=== PATIENT | female | born 1965 | race Caucasian/White ===

== ENCOUNTER 2022-05-20 13:17 | Emergency (ER) | payer BC, SELFPAY ==
--- NOTE | 2022-05-20 13:43 | ED.GENADULT ---
HPI - General Adult General Time Seen by Provider: 13:43 <Lucila Rodriguez MD - Last Filed: 05/20/22 15:49> Date Seen: 05/20/22 <Lucila Rodriguez MD - Last Filed: 05/20/22 15:49> Chief complaint: Dizziness/Vertigo <Lucila Rodriguez MD - Last Filed: 05/20/22 15:49> Stated complaint: Dizziness, numbness on left side of face <Lucila Rodriguez MD - Last Filed: 05/20/22 15:49> Time Seen by Provider: 05/20/22 13:42 <Lucila Rodriguez MD - Last Filed: 05/20/22 15:49> Source: patient and RN notes reviewed <Lucila Rodriguez MD - Last Filed: 05/20/22 15:49> Mode of arrival: ambulatory <Lucila Rodriguez MD - Last Filed: 05/20/22 15:49> Limitations: no limitations <Lucila Rodriguez MD - Last Filed: 05/20/22 15:49> History of Present Illness HPI narrative: Patient is a 56-year-old female seen with concern of underlying brain tumors or multiple sclerosis. She has had what she states was left facial numbness but is actually more dysesethsia with the sense that there was a hair on her face. She feels this on the left side. It is not truly a numbness or tingling. She has noticed dizziness that is not spinning. She is very active and walks 2 miles a day but if she goes down an incline or crosses over a crosswalk where there are lines in the road, it alters her depth perception significantly and she will feel like she is going to fall. She will have to hang onto however she is with. She admits that the symptoms have been over a year for some a volume, the dizziness is the most new but it has been present for a while now. She is tearful, she relays to me when I ask that she is worried that this could be multiple sclerosis or even a brain tumor. She notes no numbness tingling anywhere else. She notes no incoordination. There is no weakness. At times her heart will race but she states that it has been going on for a long time and she has 2 brothers that have the same thing. She has no chest pain. There is no visual symptoms like double vision or decreased visual acuity or blurry vision. She has also been feeling more fatigued as of late. <Lucila Rodriguez MD - Last Filed: 05/20/22 15:49> Related Data Home medications: Home Medications Medication Instructions Recorded Confirmed estradiol 0.05 mg/24 hr semiweekly 05/20/22 transdermal patch progesterone micronized 100 mg mg 05/20/22 capsule <Lucila Rodriguez MD - Last Filed: 05/20/22 15:49> Allergies/adverse reactions: Allergies Allergy/AdvReac Type Severity Reaction Status Date / Time Penicillins Allergy Severe Anaphylaxis Verified 05/19/22 15:47 oxycodone Allergy Mild Verified 05/19/22 15:47 codeine Allergy Mild Vomiting Uncoded 05/19/22 15:47 lacaserine AdvReac Uncoded 05/19/22 15:47 <Lucila Rodriguez MD - Last Filed: 05/20/22 15:49> Review of Systems Status of ROS: Reports: 10 or more systems reviewed and unremarkable except as noted in History and below <Lucila Rodriguez MD - Last Filed: 05/20/22 15:49> PFSH PFSH Social History: Social History Smoking Status: Never smoker Do you use any of these nicotine containing products: None How often do you have a drink containing alcohol: never How often do you have six or more drinks on one occasion: Never AUDIT-C Alcohol total score: 0 Non-prescribed substance use: denies use <Lucila Rodriguez MD - Last Filed: 05/20/22 15:49> Exam Const: Vital Signs, click to edit/add: Vital Signs - 24 hr 05/20/22 13:44 Temperature 98.1 F Pulse Rate [Pulse Oximeter] 93 Respiratory Rate 18 Blood Pressure [Le ft Upper Arm] 148/99 H Pulse Oximetry 96 Oxygen Delivery Me thod Room Air <Lucila Rodriguez MD - Last Filed: 05/20/22 15:49> Vital Signs, click to edit/add: Vital Signs - 24 hr 05/20/22 13:44 Temperature 98.1 F Pulse Rate [Pulse Oximeter] 93 Respiratory Rate 18 Blood Pressure [Le ft Upper Arm] 148/99 H Pulse Oximetry 96 Oxygen Delivery Me thod Room Air <Scot Barroso MD - Last Filed: 05/20/22 16:22> Documenting provider has reviewed patient's vital signs: yes <Lucila Rodriguez MD - Last Filed: 05/20/22 15:49> Common normals: no apparent distress, average body habitus, oriented x3, no limitations, healthy appearing, alert and well nourished <Lucila Rodriguez MD - Last Filed: 05/20/22 15:49> General appearance: cooperative, comfortable, well kempt and anxious ( Cries some when she talks about her fears of what this might be) <Lucila Rodriguez MD - Last Filed: 05/20/22 15:49> HENMT: Common normals: normocephalic, head/scalp atraumatic, hearing grossly normal bilaterally, external ears normal, EAC's normal, TM's normal bilaterally, external nose normal, nasal mucous membranes and turbinates normal, moist oral mucous membranes, oropharynx normal, dentition normal and gingiva normal <Lucila Rodriguez MD - Last Filed: 05/20/22 15:49> Head and scalp: normocephalic and atraumatic <Lucila Rodriguez MD - Last Filed: 05/20/22 15:49> Nose: external nose normal and nasal mucous membranes and turbinates normal <Lucila Rodriguez MD - Last Filed: 05/20/22 15:49> External ear: external ears normal <Lucila Rodriguez MD - Last Filed: 05/20/22 15:49> External auditory canal: EAC's normal <Lucila Rodriguez MD - Last Filed: 05/20/22 15:49> Tympanic membrane: TM's normal bilaterally <Lucila Rodriguez MD - Last Filed: 05/20/22 15:49> Eye: Common normals: PERRL, EOMs intact bilaterally, conjunctivae normal and no scleral icterus <Lucila Rodriguez MD - Last Filed: 05/20/22 15:49> Conjunctiva: conjunctiva(e) normal <Lucila Rodriguez MD - Last Filed: 05/20/22 15:49> Pupil: PERRL <Lucila Rodriguez MD - Last Filed: 05/20/22 15:49> Neck & C-Spine: Common normals: full ROM, no lymphadenopathy, supple, no meningeal signs, no JVD and thyroid normal <Lucila Rodriguez MD - Last Filed: 05/20/22 15:49> Thyroid: thyroid normal <Lucila Rodriguez MD - Last Filed: 05/20/22 15:49> Resp: Common normals: normal respiratory effort, no retractions, no use of accessory muscles and clear to auscultation bilaterally <Lucila Rodriguez MD - Last Filed: 05/20/22 15:49> Auscultation: clear to auscultation bilaterally <Lucila Rodriguez MD - Last Filed: 05/20/22 15:49> Cardio: Common normals: no JVD, regular rate, regular rhythm, S1 normal heart sound, S2 normal heart sound, no gallops, no clicks and no murmurs <Lucila Rodriguez MD - Last Filed: 05/20/22 15:49> Rate: regular rate <Lucila Rodriguez MD - Last Filed: 05/20/22 15:49> Rhythm: regular rhythm <Lucila Rodriguez MD - Last Filed: 05/20/22 15:49> Heart sounds: S1 normal and S2 normal <Lucila Rodriguez MD - Last Filed: 05/20/22 15:49> GI: Common normals: Normal to inspection, nondistended, normoactive bowel sounds present, soft to palpation, non-tender, no hepatosplenomegaly and no masses <Lucila Rodriguez MD - Last Filed: 05/20/22 15:49> Palpation: soft and no hepatosplenomegaly <Lucila Rodriguez MD - Last Filed: 05/20/22 15:49> Extremity: Other: no lower extremity edema <Lucila Rodriguez MD - Last Filed: 05/20/22 15:49> Neuro: Willet Coma Scale: document GCS findings Willet coma scale eye opening: Spontaneous (4) Benjamin coma scale verbal response: Orientated (5) Benjamin coma scale motor response: Obey commands (6) Benjamin coma scale total score: 15 <Lucila Rodriguez MD - Last Filed: 05/20/22 15:49> Willet Coma Scale: document GCS findings Willet coma scale total score: 15 <Scot Barroso MD - Last Filed: 05/20/22 16:22> Common normals: oriented x3, CN's II-XII intact bilaterally, moves all extremities, no focal motor deficits, no sensory deficits noted and gait normal <Lucila Rodriguez MD - Last Filed: 05/20/22 15:49> Sensorium/orientation: alert <Lucila Rodriguez MD - Last Filed: 05/20/22 15:49> Meningeal signs: no meningeal signs <Lucila Rodriguez MD - Last Filed: 05/20/22 15:49> Other: has 2+ symmetric reflexes at biceps, right patellar but could not get left patellar. <Lucila Rodriguez MD - Last Filed: 05/20/22 15:49> Psych: Appearance: well kempt <Lucila Rodriguez MD - Last Filed: 05/20/22 15:49> Course Reevaluation(s) Reevaluation #1: Patient is resting. Reviewed that her MRI will need to be read. Her labs are normal outside of the pending TSH. She does report that she has a neurology appointment in 1 month's time. Reviewed with her if her head MRI is normal, this would be the next step that we would recommend thus, am happy to hear she has this scheduled. Dr. Barroso will be following up her MRI and TSH. <Lucila Rodriguez MD - Last Filed: 05/20/22 15:49> Time: 15:44 <Lucila Rodriguez MD - Last Filed: 05/20/22 15:49> Reevaluation #2: Radiologist's I discussed with on the MRI there were no acute findings, per she will be sent home with the discharge information as above. Patient is informed of this. <Scot Barroso MD - Last Filed: 05/20/22 16:22> Time: 16:22 <Scot Barroso MD - Last Filed: 05/20/22 16:22> Vital Signs Vital signs: Initial Vital Signs Temperature 98.1 F 05/20/22 13:44 Temperature Source Temporal Artery Scan 05/20/22 13:44 Pulse Rate 93 05/20/22 13:44 Respiratory Rate 18 05/20/22 13:44 Blood Pressure 148/99 H 05/20/22 13:44 Blood Pressure Mean 115 05/20/22 13:44 Blood Pressure Position Supine 05/20/22 13:44 Pulse Oximetry 96 05/20/22 13:44 Oxygen Delivery Method 05/20/22 13:44 Vital Signs Temperature 98.1 F 05/20/22 13:44 Pulse Rate 93 05/20/22 13:44 Respiratory Rate 18 05/20/22 13:44 Blood Pressure 148/99 H 05/20/22 13:44 Pulse Oximetry 96 05/20/22 13:44 Oxygen Delivery Method 05/20/22 13:44 Temperature 98.1 F 05/20/22 13:44 Pulse Rate 93 05/20/22 13:44 Respiratory Rate 18 05/20/22 13:44 Blood Pressure 148/99 H 05/20/22 13:44 Pulse Oximetry 96 05/20/22 13:44 Oxygen Delivery Method 05/20/22 13:44 <Lucila Rodriguez MD - Last Filed: 05/20/22 15:49> Initial Vital Signs Temperature 98.1 F 05/20/22 13:44 Temperature Source Temporal Artery Scan 05/20/22 13:44 Pulse Rate 93 05/20/22 13:44 Respiratory Rate 18 05/20/22 13:44 Blood Pressure 148/99 H 05/20/22 13:44 Blood Pressure Mean 115 05/20/22 13:44 Blood Pressure Position Supine 05/20/22 13:44 Pulse Oximetry 96 05/20/22 13:44 Oxygen Delivery Method 05/20/22 13:44 Vital Signs Temperature 98.1 F 05/20/22 13:44 Pulse Rate 93 05/20/22 13:44 Respiratory Rate 18 05/20/22 13:44 Blood Pressure 148/99 H 05/20/22 13:44 Pulse Oximetry 96 05/20/22 13:44 Oxygen Delivery Method 05/20/22 13:44 Temperature 98.1 F 05/20/22 13:44 Pulse Rate 93 05/20/22 13:44 Respiratory Rate 18 05/20/22 13:44 Blood Pressure 148/99 H 05/20/22 13:44 Pulse Oximetry 96 05/20/22 13:44 Oxygen Delivery Method 05/20/22 13:44 <Scot Barroso MD - Last Filed: 05/20/22 16:22> Medical Decision Making Lab Data Lab results reviewed: Yes I reviewed the patient's lab results <Lucila Rodriguez MD - Last Filed: 05/20/22 15:49> Labs: Lab Results 05/20/22 05/20/22 05/20/22 Range/Units 14:31 14:31 14:31 WBC 5.11 (4.50-11.00) K/uL RBC 4.37 (4.00-5.20) m/uL Hgb 13.4 (12.0-16.0) gm/dL Hct 39.5 (33.0-51.0) % MCV 90 (80-100) fL MCH 31 (26-34) pg MCHC 34 (32-36) gm/dL RDW Coeff of John 11.9 (11.5-15.5) % Plt Count 209 (140-440) K/uL Neut % (Auto) 74.3 H (42.0-72.0) % Lymph % (Auto) 14.5 L (20-44) % [place] % (Auto) 7.8 (0.0-11.0) % Eos % (Auto) 2.0 (0.0-7.0) % Baso % (Auto) 0.6 (0.0-3.0) % Neut # (Auto) 3.80 (1.7-7.0) K/uL Lymph # (Auto) 0.70 L (0.90-2.90) K/uL [place] # (Auto) 0.40 (0.00-0.90) K/UL Eos # (Auto) 0.10 (0.00-0.50) K/uL Baso # (Auto) 0.03 (0.00-0.30) K/uL Abs Immat Gran (auto) 0.04 (0.00-0.30) K/uL ESR 7 (2-20) mm/hr Sodium 139 (135-149) mmol/L Potassium 4.0 (3.6-5.1) mmol/L Chloride 102 (96-114) mmol/L Carbon Dioxide 31 (20-32) mmol/L BUN 19 (7-30) mg/dL Creatinine 1.0 (0.5-1.5) mg/dL Estimated Creat Clear 52.95 Estimated GFR 65 ml/min Glucose 119 H (60-115) mg/dL Calcium 9.3 (8.4-10.6) mg/dL Total Bilirubin 0.6 (0.1-1.5) mg/dL AST 24 (12-35) U/L ALT 15 (4-35) U/L Alkaline Phosphatase 66 (40-150) U/L C-Reactive Protein < 0.5 L (0.5-1.0) mg/dL Total Protein 7.4 (6.0-8.3) g/dL Albumin 4.5 (3.3-5.0) g/dL TSH (0.270-4.200) uIU/mL 05/20/22 Range/Units 14:31 WBC (4.50-11.00) K/uL RBC (4.00-5.20) m/uL Hgb (12.0-16.0) gm/dL Hct (33.0-51.0) % MCV (80-100) fL MCH (26-34) pg MCHC (32-36) gm/dL RDW Coeff of John (11.5-15.5) % Plt Count (140-440) K/uL Neut % (Auto) (42.0-72.0) % Lymph % (Auto) (20-44) % [place] % (Auto) (0.0-11.0) % Eos % (Auto) (0.0-7.0) % Baso % (Auto) (0.0-3.0) % Neut # (Auto) (1.7-7.0) K/uL Lymph # (Auto) (0.90-2.90) K/uL Har[place] # (Auto) (0.00-0.90) K/UL Eos # (Auto) (0.00-0.50) K/uL Baso # (Auto) (0.00-0.30) K/uL Abs Immat Gran (auto) (0.00-0.30) K/uL ESR (2-20) mm/hr Sodium (135-149) mmol/L Potassium (3.6-5.1) mmol/L Chloride (96-114) mmol/L Carbon Dioxide (20-32) mmol/L BUN (7-30) mg/dL Creatinine (0.5-1.5) mg/dL Estimated Creat Clear Estimated GFR ml/min Glucose (60-115) mg/dL Calcium (8.4-10.6) mg/dL Total Bilirubin (0.1-1.5) mg/dL AST (12-35) U/L ALT (4-35) U/L Alkaline Phosphatase (40-150) U/L C-Reactive Protein (0.5-1.0) mg/dL Total Protein (6.0-8.3) g/dL Albumin (3.3-5.0) g/dL TSH 1.300 (0.270-4.200) uIU/mL <Lucila Rodriguez MD - Last Filed: 05/20/22 15:49> Lab Results 05/20/22 05/20/22 05/20/22 Range/Units 14:31 14:31 14:31 WBC 5.11 (4.50-11.00) K/uL RBC 4.37 (4.00-5.20) m/uL Hgb 13.4 (12.0-16.0) gm/dL Hct 39.5 (33.0-51.0) % MCV 90 (80-100) fL MCH 31 (26-34) pg MCHC 34 (32-36) gm/dL RDW Coeff of John 11.9 (11.5-15.5) % Plt Count 209 (140-440) K/uL Neut % (Auto) 74.3 H (42.0-72.0) % Lymph % (Auto) 14.5 L (20-44) % [place] % (Auto) 7.8 (0.0-11.0) % Eos % (Auto) 2.0 (0.0-7.0) % Baso % (Auto) 0.6 (0.0-3.0) % Neut # (Auto) 3.80 (1.7-7.0) K/uL Lymph # (Auto) 0.70 L (0.90-2.90) K/uL [place] # (Auto) 0.40 (0.00-0.90) K/UL Eos # (Auto) 0.10 (0.00-0.50) K/uL Baso # (Auto) 0.03 (0.00-0.30) K/uL Abs Immat Gran (auto) 0.04 (0.00-0.30) K/uL ESR 7 (2-20) mm/hr Sodium 139 (135-149) mmol/L Potassium 4.0 (3.6-5.1) mmol/L Chloride 102 (96-114) mmol/L Carbon Dioxide 31 (20-32) mmol/L BUN 19 (7-30) mg/dL Creatinine 1.0 (0.5-1.5) mg/dL Estimated Creat Clear 52.95 Estimated GFR 65 ml/min Glucose 119 H (60-115) mg/dL Calcium 9.3 (8.4-10.6) mg/dL Total Bilirubin 0.6 (0.1-1.5) mg/dL AST 24 (12-35) U/L ALT 15 (4-35) U/L Alkaline Phosphatase 66 (40-150) U/L C-Reactive Protein < 0.5 L (0.5-1.0) mg/dL Total Protein 7.4 (6.0-8.3) g/dL Albumin 4.5 (3.3-5.0) g/dL TSH (0.270-4.200) uIU/mL 05/20/22 Range/Units 14:31 WBC (4.50-11.00) K/uL RBC (4.00-5.20) m/uL Hgb (12.0-16.0) gm/dL Hct (33.0-51.0) % MCV (80-100) fL MCH (26-34) pg MCHC (32-36) gm/dL RDW Coeff of John (11.5-15.5) % Plt Count (140-440) K/uL Neut % (Auto) (42.0-72.0) % Lymph % (Auto) (20-44) % [place] % (Auto) (0.0-11.0) % Eos % (Auto) (0.0-7.0) % Baso % (Auto) (0.0-3.0) % Neut # (Auto) (1.7-7.0) K/uL Lymph # (Auto) (0.90-2.90) K/uL [place] # (Auto) (0.00-0.90) K/UL Eos # (Auto) (0.00-0.50) K/uL Baso # (Auto) (0.00-0.30) K/uL Abs Immat Gran (auto) (0.00-0.30) K/uL ESR (2-20) mm/hr Sodium (135-149) mmol/L Potassium (3.6-5.1) mmol/L Chloride (96-114) mmol/L Carbon Dioxide (20-32) mmol/L BUN (7-30) mg/dL Creatinine (0.5-1.5) mg/dL Estimated Creat Clear Estimated GFR ml/min Glucose (60-115) mg/dL Calcium (8.4-10.6) mg/dL Total Bilirubin (0.1-1.5) mg/dL AST (12-35) U/L ALT (4-35) U/L Alkaline Phosphatase (40-150) U/L C-Reactive Protein (0.5-1.0) mg/dL Total Protein (6.0-8.3) g/dL Albumin (3.3-5.0) g/dL TSH 1.300 (0.270-4.200) uIU/mL <Scot Barroso MD - Last Filed: 05/20/22 16:22> ECG Data Attestation: I personally reviewed and interpreted this ECG as follows: ( Sinus rhythm, 70 beats per minute. Normal EKG. QT corrected 458 milliseconds. No evidence of ischemia.) <Lucila Rodriguez MD - Last Filed: 05/20/22 15:49> Prior ECG tracings: not available for review <Lucila Rodriguez MD - Last Filed: 05/20/22 15:49> Critical Care Time Critical Care Time Critical Care Time: No <Lucila Rodriguez MD - Last Filed: 05/20/22 15:49> Discharge Plan Discharge Clinical Impression: Dizziness, Dysesthesia of face <Lucila Rodriguez MD - Last Filed: 05/20/22 15:49> Patient Disposition: Home, Self-Care <Lucila Rodriguez MD - Last Filed: 05/20/22 15:49> Condition: Stable <Lucila Rodriguez MD - Last Filed: 05/20/22 15:49> Instructions: Paresthesia (ED), Dizziness (ED) <Lucila Rodriguez MD - Last Filed: 05/20/22 15:49> Additional Instructions: recommend clinic followup with your primary care provider within the next week to review your symptoms. Please keep your neurology appointment that you have scheduled. Take the disc of the MRI with you. <Lucila Rodriguez MD - Last Filed: 05/20/22 15:49> Activity Level: Activity as Tolerated <Lucila Rodriguez MD - Last Filed: 05/20/22 15:49> Activity as Tolerated <Scot Barroso MD - Last Filed: 05/20/22 16:22> Prescriptions: No Action estradiol 0.05 mg/24 hr patch semiweekly Label Comments: APPLY PATCH ON SKIN TWICE WEEKLY progesterone micronized 100 mg capsule <Lucila Rodriguez MD - Last Filed: 05/20/22 15:49> Follow Up/Referrals: Ileana Barajas MD [Primary Care Provider] - <Lucila Rodriguez MD - Last Filed: 05/20/22 15:49> Stand Alone Forms: MyHealth Info Instructions <Lucila Rodriguez MD - Last Filed: 05/20/22 15:49>
[2022-05-20 13:44] VITALS: BP 148/99; PULSE 93; RESP 18; TEMP 36.7; O2SAT 96; BMI 25.7
--- NOTE | 2022-05-20 13:55 | CRLHL7_ITS ---
For Patients: As a result of the Century Cures Act, medical imaging exams and procedure reports are released immediately into your electronic medical record. You may view this report before your referring provider. If you have questions, please contact your health care provider. Indication: DIZZINESS, DYSESTHESIA L FACE, DEPTH PERCEPTION Technique: Noncontrast sagittal T1 weighted, axial FLAIR, axial T2 weighted, and axial diffusion weighted sequences are provided. Comparison: No prior studies available for comparison at this institution. Findings: The ventricles, sulci and gyri are normal size, shape and contour for age. The midline structures are centrally located with no evidence of shift. There are no suspicious intra or extra-axial fluid collections. No region of restricted diffusion. Scattered foci of T2/FLAIR signal hyperintensity in the subcortical white matter are nonspecific. Expected flow voids in the cavernous carotids and basilar artery. Findings called to Dr. Barroso at 4:20 pm Impression: 1. No evidence of acute intracranial abnormality. 2. Scattered foci of T2 prolongation in the supratentorial white matter are nonspecific. Differential considerations include sequela of migraine headaches and early chronic microangiopathic changes. Dictated by Rachid Coley MD @ 05/20/2022 4:22:30 PM (Electronically Signed)
[2022-05-20 14:37] LABS: Basophils Absolute Auto 0.03 K/uL (0.00-0.30); Basophils Percent Auto 0.6 % (0.0-3.0); Hematocrit 39.5 % (33.0-51.0); Hemoglobin* 13.4 gm/dL (12.0-16.0); Immature Granulocytes Abs Auto 0.04 K/uL (0.00-0.30); Lymphocytes Percent Auto 14.5 % (20-44); Mean Corpuscular HGB Conc 34 gm/dL (32-36); Mean Corpuscular Hemoglobin 31 pg (26-34); Mean Corpuscular Volume 90 fL (80-100); Monocytes Percent Auto 7.8 % (0.0-11.0); Neutrophils Percent Auto 74.3 % (42.0-72.0); Platelet Count* 209 K/uL (140-440); RDW Coefficient of Variation % 11.9 % (11.5-15.5); Red Blood Count 4.37 m/uL (4.00-5.20); White Blood Count* 5.11 K/uL (4.50-11.00)
[2022-05-20 14:52] LABS: Slide Review Reflex No
[2022-05-20 15:07] LABS: Albumin* 4.5 g/dL (3.3-5.0); Chloride* 102 mmol/L (96-114); Sodium* 139 mmol/L (135-149)
[2022-05-20 15:10] LABS: Alkaline Phosphatase* 66 U/L (40-150); Aspartate Amino Transferase* 24 U/L (12-35); Bilirubin Total* 0.6 mg/dL (0.1-1.5); Carbon Dioxide* 31 mmol/L (20-32); Est. Creatinine Clearance* 52.95; Estimated Glomerular Filt Rate 65 ml/min; Total Protein* 7.4 g/dL (6.0-8.3)
[2022-05-20 15:11] LABS: Alanine Aminotransferase* 15 U/L (4-35); Blood Urea Nitrogen* 19 mg/dL (7-30); Calcium* 9.3 mg/dL (8.4-10.6); Glucose* 119 mg/dL (60-115)
[2022-05-20 15:14] LABS: C Reactive Protein* < 0.5 mg/dL (0.5-1.0)
[2022-05-20 15:21] LABS: Erythrocyte SedimentationRate* 7 mm/hr (2-20)
== END 2022-05-20 17:16 | disposition home or self-care (01) ==
PROVIDERS: Family Medicine; Emergency Provider Family Medicine; PCP Internal Medicine
DX: R42 Dizziness and giddiness (principal); R20.8 Other disturbances of skin sensation
CPT/HCPCS: 36415; 70551; 80053; 84443; 85025; 85651; 86140; 93005; 99284; 99285

== ENCOUNTER 2022-11-03 15:34 | Outpatient (CLI) | payer BC, SELFPAY ==
--- NOTE | 2022-11-03 15:30 | CRLHL7_ITS ---
For Patients: As a result of the Century Cures Act, medical imaging exams and procedure reports are released immediately into your electronic medical record. You may view this report before your referring provider. If you have questions, please contact your health care provider. DXA BONE MINERAL DENSITY STUDY Reason for exam: Osteopenia. Current height (in): 64. Weight (lb): 165. Menopause age: 53. Ethnicity: White. 1. Have you had a previous hip or vertebral fracture? No. 2. Have you had any fractures during your adult life which did not result from significant trauma (e.g., auto accident)? No. 3. Did either of your parents have a hip fracture? No. 4. Do you smoke? No. 5. Have you ever taken Glucocorticoids? No. 6. Do you have rheumatoid arthritis? No. 7. Do you have secondary osteoporosis? No. 8. Do you drink 3 or more alcoholic drinks per day? No. 9. Are you being treated for osteoporosis? No. 10. Have you ever taken any of the following medications: Actonel, Evista, Fosamax, Miacalcin, Reclast, Boniva, Forteo, HRT (i.e., estrogen/hormone therapy), Protelos, Prolia, Vitamin D, Calcium, other ??? please specify. ANSWER: Yes, vitamin D and calcium. 11. Do you have any of the following medical conditions: Anorexia or bulimia, asthma or emphysema, end stage renal disease, hyperparathyroidism, any seizure disorders, cancer, inflammatory bowel diseases, hysterectomy, other ??? please specify. ANSWER: No. 12. What was your maximum height (inches)? 65. 13. Do you perform weight bearing exercise regularly? Yes. 14. Do you regularly consume dairy products? No. 15. Do you drink caffeinated beverages? Yes. If female: 16. At what age did your period start? 13. 17. Are you premenopausal? No. 18. How many full-term pregnancies have you had? 3. 19. Have you ever missed your period for more than 6 months in a row (not including or menopause)? No. TECHNIQUE: Bone mineral density study was performed using the [employer]. FINDINGS: The results of the study expressed as bone mineral density (BMD) are as follows: Lumbar spine L1 to L4: BMD: 0.935 g/cm2. T-score: -1.0. Z-score: 0.4 Neck Left: BMD: 0.609 g/cm2. T-score: -2.2. Z-score: -0.9 Right: BMD: 0.631 g/cm2. T-score: -2.0. Z-score: -0.7 Total Left: BMD: 0.915 g/cm2. T-score: -0.2. Z-score: 0.7 Right: BMD: 0.907 g/cm2. T-score: -0.3. Z-score: 0.6 IMPRESSION: Osteopenia. *Comparison exams done prior to 12/2019 were performed on different unit, [employer]. COMPARISON: Compared with scan of 06/17/2020, the bone mineral density has decreased by 5.9 percent at the spine and decreased by 0.9 percent at the hip. FRAX 10-year Fracture Risk Major Osteoporotic Fracture: 9.6% Hip Fracture: 1.3% Reported Risk Factors: [place] () Neck BMD=0.609, BMI= 28.3 Rachid Sosa M.D. Diagnostic Radiologist [email or web address] [email or web address] garza/Dictated by: Rachid Sosa MD @ 11/04/2022 12:21:00 PM (Electronically Signed)
== END 2022-11-03 15:35 | disposition home or self-care (01) ==
LOC: RAD 15:35
PROVIDERS: PCP Internal Medicine; Visit Provider Obstetrics & Gynecology
DX: M85.80 Other specified disorders of bone density and structure, unspecified site (principal); M85.89 Other specified disorders of bone density and structure, multiple sites
CPT/HCPCS: 77080

== ENCOUNTER 2022-11-07 07:38 | Outpatient (CLI) | payer BC, SELFPAY ==
--- NOTE | 2022-11-07 07:45 | CRLHL7_ITS ---
For Patients: As a result of the Century Cures Act, medical imaging exams and procedure reports are released immediately into your electronic medical record. You may view this report before your referring provider. If you have questions, please contact your health care provider. BILATERAL SCREENING MAMMOGRAM WITH COMPUTER-AIDED DETECTION AND TOMOSYNTHESIS TECHNIQUE: CC and MLO views were obtained. These mammographic images have been obtained using full-field digital technique. These mammographic images were interpreted with the benefit of computer-aided detection. Breast Tomosynthesis was used in this interpretation. COMPARISON FILM: 09/21/21, 06/17/20, 06/14/19. FINDINGS: The breasts are extremely dense, which lowers the sensitivity of mammography IMPRESSION: There is no radiographic evidence for malignancy. ASSESSMENT: BI-RADS Category 1: Negative RECOMMENDATION: Routine screening mammogram in 1 year. A lay language report of this examination will be provided to the patient. Rachid Sosa M.D. Diagnostic Radiologist [email or web address] [email or web address] Transcribed: 2:05 p.[email or web address] garza/Dictated by: Rachid Sosa MD @ 11/07/2022 12:47:00 PM (Electronically Signed)
== END 2022-11-07 07:39 | disposition home or self-care (01) ==
LOC: MAMMO 07:38
PROVIDERS: PCP Internal Medicine; Visit Provider Obstetrics & Gynecology
DX: Z12.31 Encounter for screening mammogram for malignant neoplasm of breast (principal); R92.2 Inconclusive mammogram
CPT/HCPCS: 77063; 77067

== ENCOUNTER 2023-03-14 14:47 | Emergency (ER) | payer BC, SELFPAY ==
[2023-03-14 15:37] VITALS: BP 146/87; PULSE 71; RESP 16; TEMP 36.6; O2SAT 98; BMI 25.7
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
== END 2023-03-14 18:23 | disposition home or self-care (01) ==
LOC: ED 18:01
PROVIDERS: Emergency Provider Emergency Medicine Emergency Medical Services; PCP Internal Medicine
DX: L03.221 Cellulitis of neck (principal)
CPT/HCPCS: 99283; 99284

== ENCOUNTER 2023-09-18 09:04 | Outpatient (CLI) | payer BC, SELFPAY | END 2023-09-18 09:05 | disposition home or self-care (01) | PROVIDERS: PCP Internal Medicine; Visit Provider Obstetrics & Gynecology | DX: N39.46 Mixed incontinence (principal) | CPT/HCPCS: 87086 ==

== ENCOUNTER 2023-11-17 08:05 | Outpatient (CLI) | payer BC, SELFPAY ==
--- NOTE | 2023-11-17 08:15 | MM_ITS ---
Patient: ADELINA SANDS Facility:?[facility] Patient ID:?[id number] Site Patient ID:?[id number] Site :?[id number] Study:?XRay-Breast Bilateral 3D w/CAD-11/17/2023 8:34:18 AM Ordering Physician:Yang Final Report: BILATERAL SCREENING MAMMOGRAM WITH COMPUTER-AIDED DETECTION AND TOMOSYNTHESIS TECHNIQUE: CC and MLO views were obtained. These mammographic images have been obtained using full-field digital technique. These mammographic images were interpreted with the benefit of computer-aided detection. Breast Tomosynthesis was used in this interpretation. COMPARISON FILM: 11/07/22, 09/21/21, 06/17/20. FINDINGS: The breasts are heterogeneously dense, which may obscure small masses IMPRESSION: There is no radiographic evidence for malignancy. ASSESSMENT: BI-RADS Category 1: Negative RECOMMENDATION: Routine screening mammogram in 1 year. A lay language report of this examination will be provided to the patient. Rachid Sosa M.D. Diagnostic Radiologist [email or web address] CODIE/kayla Transcribed: 12:50 p.mErrol garza/Dictated by: Rachid Sosa MD @ 11/17/2023 9:12:00 AM Signed by:?Rachid Sosa MD @11/17/2023 3:02:20 PM (Electronic Signature)
== END 2023-11-17 08:06 | disposition home or self-care (01) ==
LOC: MAMMO 08:06
PROVIDERS: PCP Internal Medicine; Visit Provider Obstetrics & Gynecology
DX: Z12.31 Encounter for screening mammogram for malignant neoplasm of breast (principal); R92.2 Inconclusive mammogram
CPT/HCPCS: 77063; 77067

== ENCOUNTER 2024-05-09 09:46 | Outpatient (CLI) | payer BC, SELFPAY | END 2024-05-09 09:47 | disposition home or self-care (01) | PROVIDERS: PCP Internal Medicine; Visit Provider Internal Medicine | DX: E78.5 Hyperlipidemia, unspecified (principal); E04.1 Nontoxic single thyroid nodule; Z13.21 Encounter for screening for nutritional disorder; Z13.1 Encounter for screening for diabetes mellitus | CPT/HCPCS: 80061; 82306; 82947; 84443 ==

== ENCOUNTER 2024-06-06 15:30 | Outpatient (CLI) | payer BC, SELFPAY ==
--- NOTE | 2024-06-06 15:30 | CRLHL7_ITS ---
For Patients: As a result of the Century Cures Act, medical imaging exams and procedure reports are released immediately into your electronic medical record. You may view this report before your referring provider. If you have questions, please contact your health care provider. DEXA BONE MINERAL DENSITY STUDY Reason for exam: Osteopenia. Current height (inches): 64 Weight (lbs.): 160 Menopause age: 53 Ethnicity: White 1. Have you had a previous hip or vertebral fracture? No. 2. Have you had any fractures during your adult life which did not result from significant trauma (e.g., auto accident)? No. 3. Did either of your parents have a hip fracture? No. 4. Do you smoke? No. 5. Have you ever taken Glucocorticoids? No. 6. Do you have rheumatoid arthritis? No. 7. Do you have secondary osteoporosis? No. 8. Do you drink 3 or more alcoholic drinks per day? No. 9. Are you being treated for osteoporosis? No. 10. Have you ever taken any of the following medications: Actonel, Evista, Fosamax, Miacalcin, Reclast, Boniva, Forteo, HRT (i.e., estrogen/hormone therapy), Protelos, Prolia, Vitamin D, Calcium, other ??? please specify. ANSWER: Yes; vitamin D, calcium, HRT (estrogen/hormone therapy). 11. Do you have any of the following medical conditions: Anorexia or bulimia, asthma or emphysema, end stage renal disease, hyperparathyroidism, any seizure disorders, cancer, inflammatory bowel diseases, hysterectomy, other ??? please specify. ANSWER: Yes; seizure disorder. 12. What was your maximum height (inches)? 65. 13. Do you perform weightbearing exercise regularly? Yes. 14. Do you regularly consume dairy products? No. 15. Do you drink caffeinated beverages? Yes. 16. At what age did your period start? 13. 17. Are you premenopausal? No. 18. How many full-term pregnancies have you had? 3. 19. Have you ever missed your period for more than 6 months in a row (not including or menopause)? No. TECHNIQUE: Bone mineral density study was performed using the [employer]. FINDINGS: The results of the study expressed as bone mineral density (BMD) are as follows: Lumbar Spine L1 to L4: BMD: 0.926 g/cm2. T-score: -1.1. Z-score: 0.4. Neck Left: BMD: 0.587 g/cm2. T-score: -2.4. Z-score: -1.0. Right: BMD: 0.643 g/cm2. T-score: -1.9. Z-score: -0.5. Total Left: BMD: 0.872 g/cm2. T-score: -0.6. Z-score: 0.4. Right: BMD: 0.896 g/cm2. T-score: -0.4. Z-score: 0.6. IMPRESSION: Osteopenia. COMPARISON: Compared with scan of 11/03/2022, the bone mineral density has decreased by 1.0% at the spine and decreased by 2.9% at the hip. Compared with scan of 06/17/2020, the bone mineral density has decreased by 5.9% at the spine and decreased by 0.9% at the hip. *Comparison exams done prior to 12/2019 were performed on different unit, Navag[facility]. FRAX 10-year Fracture Risk Major Osteoporotic Fracture: 11% Hip Fracture: 1.8% Reported Risk Factors: [place] () Neck BMD = 0.587, BMI = 27.5. SHANON REDDY M.D. Diagnostic/Breast Radiologist [email or web address] Transcribed: 5:[address]/Dictated by: Shanon Reddy MD @ 06/07/2024 4:22:00 PM (Electronically Signed)
--- OUTSIDE RECORDS SUMMARY | 2024-06-06 15:33 | XMS_ITS | Referral Summary ---
Author Organization [facility] Address [address] [place] [address] [place] [address] Care Team Providers Care Semiconductor Wafers Saw Operator Name Role Phone Ileana Barajas Primary Care Provider [phone] Allergies Active Allergy Reactions Criticality Noted Date Comments Acetaminophen Rash 03/21/2016 Codeine Confusion,Dizzines s,Lightheadedness 12/20/2019 Other reaction(s): GI intolerance Dextromethorphan Rash Low 03/21/2016 Other reaction(s): rash on right groin Wxwbawqyz-Bwc-Al-Acetamin ophen Rash 11/30/2017 Doxylamine Rash Low 05/21/2020 Hydromorphone 12/20/2019 Other reaction(s): GI intolerance Influenza Virus Vaccines 05/21/2020 Other reaction(s): Other (see comments) Areli Guan Lorcaserin High 05/22/2018 Other reaction(s): Seizure Serotonin syndrome Other reaction(s): seizures Oxycodone Dizziness,Drowsine ss,Nausea,Vomiting 12/20/2019 Other reaction(s): GI intolerance Penicillins Anaphylaxis,Swelli ng, lips/tongue,Diffic ulty breathing 01/17/2007 Pseudoephedrine Rash Low 03/21/2016 Other reaction(s): rash on right groin Medications Medication Sig Dispensed Refills Start Date End Date Status estradioL (VIVELLE-DOT) 0.0375 mg/24 hr TD SEMIweekly patch APPLY 1 PATCH EXTERNALLY TO THE SKIN 2 TIMES A WEEK 02/10/2021 Active multivitamin oral tablet Daily. Active progesterone micronized (PROMETRIUM) 100 mg oral capsule TAKE 1 CAPSULE BY MOUTH EVERY NIGHT AT BEDTIME 06/10/2022 Active acyclovir (ZOVIRAX) 800 mg oral tabletIndications:Her pes zoster without complication Take 1 tablet (800 mg) by mouth five times a day. 7 tablet 3 12/30/2022 Active Active Problems Problem Noted Date Diagnosed Date Numbness 06/20/2022 Mixed hyperlipidemia 06/20/2022 Fatigue, unspecified type 06/20/2022 Social History Tobacco Use Types Packs/Day Years Used Date Smoking Tobacco: Never Smokeless Tobacco: Never Tobacco Cessation:Counseling Given: Not Answered Alcohol Use Standard Drinks/Week Comments Not Currently 0 (1 standard drink = 0.6 oz pur e alcohol) Sex and Gender Information Value Date Recorded Sex Assigned at Not on file Gender Identity Not on file Sexual Orientation Not on file Last Filed Vital Signs Vital Sign Reading Time Taken Comments Blood Pressure - - Pulse - - Temperature - - Respiratory Rate - - Oxygen Saturation - - Inhaled Oxygen Concentration - - Weight 70.3 kg (155 lb) 06/20/2022 2:56 PM TITLE CURATOR Height 162.6 cm (5' 4) 06/20/2022 2:56 PM TITLE CURATOR Body Mass Index 26.61 06/20/2022 2:56 PM TITLE CURATOR Plan of Treatment Not on file Care Teams Semiconductor Wafers Saw Operator Relationship Specialty Start Date End Date Ileana Barajas [address] [id number] PCP - General 06/20/22
--- OUTSIDE RECORDS SUMMARY | 2024-06-06 15:33 | XMS_ITS | Clinical Summary ---
Author Organization [facility] Address [address] [place] [address] [place] [address] Care Team Providers Care Financial Planning Assistant Name Role Phone Ileana Barajas Primary Care Provider [phone] Allergies Active Allergy Reactions Criticality Noted Date Comments Acetaminophen Rash 03/21/2016 Codeine Confusion,Dizzines s,Lightheadedness 12/20/2019 Other reaction(s): GI intolerance Dextromethorphan Rash Low 03/21/2016 Other reaction(s): rash on right groin Iaouoobpy-Sub-Jt-Acetamin ophen Rash 11/30/2017 Doxylamine Rash Low 05/21/2020 [...] 70.3 kg (155 lb) 06/20/2022 2:56 PM ANESTHESIA RESIDENT Height 162.6 cm (5' 4) 06/20/2022 2:56 PM ANESTHESIA RESIDENT Body Mass Index 26.61 06/20/2022 2:56 PM ANESTHESIA RESIDENT Plan of Treatment Health Maintenance Due Date Last Done Comments Colonoscopy 1965 Hepatitis C Screening 1965 Lipid Screening 1965 Mammogram Screening 1965 Pap Smear 1965 Anxiety Screening (ANNA-2) 1966 Depression Assessment (PHQ-2) 1966 Yearly Review of HCD 2013 Zoster Vaccine (1 of 2) 2013 COVID-19 Vaccine ( season) 2024 02/10/2022, 06/11/2021, 09/10/2020, Additional history exists Influenza Vaccine (#1) 2024 Adult Tetanus Booster 12/01/2027 11/30/2017 RSV Vaccines (1 - 1-dose 75+ series) 2038 Pneumococcal <65 Aged Out No longer e ligible based on patient's age to complete this topic Care Teams Financial Planning Assistant Relationship Specialty Start Date End Date Ileana Barajas 2001 [address] [facility] [place], [place] [id number] PCP - General 06/20/22
--- OUTSIDE RECORDS SUMMARY | 2024-06-06 15:33 | XMS_ITS | Clinical Summary ---
Author Organization [facility] s & [facility] Address [place], [place] [address] Care Team Providers Care Local Bulk Driver Name Role Phone Baron Trent MD Primary Care Provider [phone] Allergies Active Allergy Reactions Criticality Noted Date Comments Acetaminophen Rash 03/21/2016 Dextromethorphan Rash 03/21/2016 Xipkotumh-Ygp-Oi-Acetaminophen Rash 11/30 Lorcaserin Seizures High 05/22/2018 Penicillins Edema,Angioedema 01/17/2007 Pseudoephedrine Rash 03/21/2016 Medications Medication Sig Dispensed Refills Start Date End Date Status emollient (VANICREAM) cream 60 g. 05/15/2018 Active progesterone micronized (PROMETRIUM) 100 mg capsule Take 100 mg by mouth. 03/18/2019 Active estradiol 0.05 mg/24 hr (ESTRADERM; VIVELLE-DOT) 0.05 mg/24 hr patch APPLY 1 PATCH EXTERNALLY TO THE SKIN 2 TIMES A WEEK 02/21/2019 Active medication order composer TESTOSTERONE 1% in VANICREAM 0 04/16/2019 Active valACYclovir (VALTREX) 1 gram tabletIndications:R ecurrent cold sores 2 tablets at onset of cold sore symptoms and repeat in dose 12 hours. 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 05/20/2024 Travel from Last 3 Months Immunizations Name Administration Dates Next Due Td (Age >=7 Years) 11/30/2017(Deferred: Patient Refused) Family History Medical History Relation Name Comments Arrhythmia Brother 1 Hyperlipidemia Brother 1 Arrhythmia Brother 2 Hyperlipidemia Brother 2 Other Daughter 1 Vanesa multiple hernia s Anesthesia Problem Daughter 2 Chapis Gets very nauseous with anesthesia Autism Daughter 2 Chapis Other Daughter 2 Chapis Factor 12 defic iency Alcoholism Father Other Father aspergillis Rheum arthritis Father Heart attack Maternal Grandfather Heart attack Maternal Grandmother Hyperlipidemia Mother Hypertension Mother Heart attack Paternal Grandfather Heart attack Paternal Grandmother Anesthesia Malignant Hyperthermia No Family History Relation Name Status Comments Brother 1 Alive Brother 2 Alive Daughter 1 Vanesa Alive Daughter 2 Chapis Alive Father (Age 50) Maternal Grandfather Maternal Grandmother Mother Alive Paternal Grandfather Paternal Grandmother Social History Tobacco Use Types Packs/Day Years Used Date Smoking Tobacco: Never Smokeless Tobacco: Never Tobacco Cessation:Counseling Given: Yes Alcohol Use Standard Drinks/Week Comments Yes 0 (1 standard drink = 0.6 oz pure alcohol) once weekly, 2 drinks at a sitting PHQ-2 Answer Date Recorded PHQ-2 Score 0 09/02/2019 Social Connections Answer Date Recorded Frequency of Communication with Friends and Fami ly Not on file 07/31/2021 Financial Resource Strain Answer Date R ecorded Difficulty of Paying Living Expenses Not on file 07/31/2021 Difficulty of Paying Living Expenses Not on file 07/31/2021 Sex and Gender Information Value Date Recorded Sex Assigned at Not on file Gender Identity Not on file Sexual Orientation Not on file Obstetrics History Last Filed Vital Signs Vital Sign Reading Time Taken Comments Blood Pressure 113/76 10/09/2019 8:33 AM CDT tow er Pulse 67 10/09/2019 8:33 AM CDT Temperature 36.8 ??C (98.3 ??F) 04/16/2019 7:50 AM CD T Respiratory Rate 16 05/22/2018 7:57 AM CDT Oxygen Saturation 96% 10/09/2019 8:33 AM CDT Inhaled Oxygen Concentration - - Weight 76.8 kg (169 lb 6.4 oz) 09/02/2019 9:14 A M SPORTS BETTING MANAGER Height 167 cm (5' 5.75) 09/02/2019 9:14 AM SPORTS BETTING MANAGER Body Mass Index 27.55 09/02/2019 9:14 AM SPORTS BETTING MANAGER Plan of Treatment Upcoming Encounters Date Type Department Care Team (Late st Contact Info) Description 06/13/2024 10:00 AM SPORTS BETTING MANAGER Procedure Only [facility] [address] [place] [address] Raad [facility] L Ac [address] [facility] 06/20/2024 8:30 AM SPORTS BETTING MANAGER Procedure Only [facility] [address] [facility] [place] [address] Raad [facility] L Ac [address] [place] [address] 07/04/2024 8:30 AM SPORTS BETTING MANAGER Procedure Only [facility] [address] [place] [facility] [place] [address] Raad Parish L Ac [address] [place] [address] 07/11/2024 8:30 AM SPORTS BETTING MANAGER Procedure Only [facility] [address] [place] [address] Raad [facility] L Ac [address] [place] [address] 07/18/2024 8:30 AM SPORTS BETTING MANAGER Procedure Only [facility] [address] [place] [address] Raad [facility] L Ac [address] [place] [address] Health Maintenance Due Date Last Done Comments Tdap 1974 HIV for age 15-65 1978 Hepatitis C screening for age 18-79 1981 Tetanus booster 1983 Colonoscopy through age 75 2008 Mammogram for age 45-75 2008 Zoster (shingles) series for age 50+ (1 of 2) 2013 Lipids for age 45-75 05/22/2014 05/22/2009, 05/22/2009, 05/22/2009 BMI (ht and wt on same day) for age 18+ 09/02/2020 09/02/2019, 05/22/2018, 01/14/2016 Depression screening for age 12+ 09/11/2020 09/11/2019, 09/03/2019, 09/02/2019, Additional history exists COVID-19 vaccine series (2023-25 season) 2024 05/06/2023, 02/10/2022, 06/11/2021, Additional history exists Influenza for age 50-64 03/31/2024 Pap test for age 21-65 09/18/2026 , 09/18/2023, 08/31/2018, Additional history exists Pneumococcal series for age 6-64 Aged Out No longer eligible based on patient's age to complete this topic Procedures Procedure Name Priority Date/Time Associated Diagnosis Comments ACUPUNCTURE PLAN OF CARE Routine 06/06/2024 1:22 PM SPORTS BETTING MANAGER Chronic right shoulder pain ACUPUNCTURE PLAN OF CARE Routine 06/06/2024 12:58 PM SPORTS BETTING MANAGER Chronic right shoulder pain HPV HIGH RISK Routine 09/18/2023 9:00 AM SPORTS BETTING MANAGER CHOLESTEROL,TOTAL Routine 05/22/2009 3:3 9 PM CDT PMS (Premenstrual Syndrome) from Last 3 Months or Most Recently Relevant to Health Maintenance Results * HPV HIGH RISK (09/18/2023 9:00 AM SPORTS BETTING MANAGER) TYPE 16 Negative Negative 09/21/2023 12:47 PM SPORTS BETTING MANAGER [facility] TYPE 18 Negative Negative 09/21/2023 12:47 PM SPORTS BETTING MANAGER [facility] OTHER HIGH RISK TYPES Negative Negative 09/21/2023 12:47 PM SPORTS BETTING MANAGER [facility] Other (Cervical) 09/18/2023 9:00 AM SPORTS BETTING MANAGER 09/19/2023 4:47 PM SPORTS BETTING MANAGER Narrative [facility] - 09/21/2023 12:47 PM SPORTS BETTING MANAGER HPV types 16, 18, 31, 33, 35, 39, 45, 51, 52, 56, 58, 59, 66 and 68 DNA were undetectable or below the pre-set threshold. Methodology: Osmani Kelley 4800 HPV Test Jeniffer Ferreira MD MICROBIOLOGY [facility] [address] [place] [id number], * Cholesterol, total (05/22/2009 3:39 PM CDT) CHOLESTEROL,TO MITCH 180 110 - 199 mg/dL [facility] Blood specimen (specimen) BLOOD SPECIMEN / Unknown 05/22/2009 3:39 PM CDT 05/22/2009 3:26 PM CDT Tello Prince MD CHEMISTRY [facility] [address] [place] [address] from Last 3 Months or Most Recently Relevant to Health Maintenance Care Teams Local Bulk Driver Relationship Specialty Start Date End Date Baron Trent MD [address] [place] [address] PCP - General Family Practice 04/04/18
== END 2024-06-06 15:31 | disposition home or self-care (01) ==
LOC: RAD 15:31
PROVIDERS: PCP Internal Medicine; Visit Provider Internal Medicine
DX: M85.88 Other specified disorders of bone density and structure, other site (principal); M85.89 Other specified disorders of bone density and structure, multiple sites
CPT/HCPCS: 77080

== ENCOUNTER 2024-10-17 13:51 | Outpatient (CLI) | payer OTHER, SELFPAY | END 2024-10-17 13:52 | disposition home or self-care (01) | PROVIDERS: PCP Internal Medicine; Visit Provider Obstetrics & Gynecology | DX: E78.5 Hyperlipidemia, unspecified (principal); E04.1 Nontoxic single thyroid nodule; F52.0 Hypoactive sexual desire disorder; Z86.39 Personal history of other endocrine, nutritional and metabolic disease; Z13.1 Encounter for screening for diabetes mellitus; Z13.6 Encounter for screening for cardiovascular disorders | CPT/HCPCS: 80061; 82947; 84270; 84402; 84403; 84443 ==

== ENCOUNTER 2024-10-25 07:30 | Outpatient (RCR) | payer OTHER, BC, SELFPAY ==
--- OUTSIDE RECORDS SUMMARY | 2024-08-01 14:46 | XMS_ITS | Clinical Summary ---
Author Organization [facility] Address [address] [place] [address] [place] [address] Care Team Providers Care Medical Diagnostic Radiographer Name Role Phone Ileana Barajas Primary Care Provider [phone] Allergies Active Allergy Reactions Criticality Noted Date Comments Acetaminophen Rash 03/21/2016 Codeine Confusion,Dizzines s,Lightheadedness 12/20/2019 Other reaction(s): GI intolerance Dextromethorphan Rash Low 03/21/2016 Other reaction(s): rash on right groin Pwrlnhnys-Jec-Kt-Acetamin ophen Rash 11/30/2017 Doxylamine Rash Low 05/21/2020 Hydromorphone 12/20/2019 Other reaction(s): GI intolerance Influenza Virus Vaccines 05/21/2020 Other reaction(s): Other (see comments) Areli Guan Lorcaserin High 05/22/2018 Other reaction(s): Seizure Serotonin syndrome Other reaction(s): seizures Oxycodone Dizziness,Drowsine ss,Nausea,Vomiting 12/20/2019 Other reaction(s): GI intolerance Penicillins Anaphylaxis,Swelli ng, lips/tongue,Diffic ulty breathing 01/17/2007 Pseudoephedrine Rash Low 03/21/2016 Other reaction(s): rash on right groin Medications estradioL (VIVELLE-DOT) 0.0375 mg/24 hr TD SEMIweekly patch APPLY 1 PATCH EXTERNALLY TO THE SKIN 2 TIMES A WEEK 1 Active multivitamin oral tablet Daily. Active progesterone micronized (PROMETRIUM) 100 mg oral capsule TAKE 1 CAPSULE BY MOUTH EVERY NIGHT AT BEDTIME 2 Active acyclovir (ZOVIRAX) 800 mg oral tabletIndications :Herpes zoster without complication Take 1 tablet (800 mg) by mouth five times a day. 7 tablet 3 3 Active Active Problems Problem Noted Date Diagnosed Date Numbness 06/20/2022 Mixed hyperlipidemia 06/20/2022 Fatigue, unspecified type 06/20/2022 Social History Tobacco Use Types Packs/Day Years Used Date Smoking Tobacco: Never Smokeless Tobacco: Never Tobacco Cessation:Counseling Given: Not Answered Alcohol Use Standard Drinks/Week Comments Not Currently 0 (1 standard drink = 0.6 oz pur e alcohol) Comments Unknown Sex and Gender Information Value Date Recorded Sex Assigned at Not on file Legal Sex Female 9:58 AM CDT Gender Identity Not on file Sexual Orientation Not on file Last Filed Vital Signs Vital Sign Reading Time Taken Comments Blood Pressure - - Pulse - - Temperature - - Respiratory Rate - - Oxygen Saturation - - Inhaled Oxygen Concentration - - Weight 70.3 kg (155 lb) 06/20/2022 2:56 PM DIE MAKER TRIM Height 162.6 cm (5' 4) 06/20/2022 2:56 PM DIE MAKER TRIM Body Mass Index 26.61 06/20/2022 2:56 PM DIE MAKER TRIM Plan of Treatment Health Maintenance Due Date [...] on patient's age to complete [place] [address] [facility] Care Teams Medical Diagnostic Radiographer Relationship Specialty Start Date End Date Ileana Barajas [address] [place] [address] PCP - General 06/20/22
--- OUTSIDE RECORDS SUMMARY | 2024-08-01 14:46 | XMS_ITS | Referral Summary ---
Author Organization [facility] Address [address] [place] [address] [place] [address] Care Team Providers Care Registered Nurse Surgical Services Name Role Phone Ileana Barajas Primary Care Provider [phone] Allergies Active Allergy Reactions Criticality Noted Date Comments Acetaminophen Rash 03/21/2016 Codeine Confusion,Dizzines s,Lightheadedness 12/20/2019 Other reaction(s): GI intolerance Dextromethorphan Rash Low 03/21/2016 Other reaction(s): rash on right groin Abpcubeej-Mnx-Pd-Acetamin ophen Rash 11/30/2017 Doxylamine Rash Low 05/21/2020 [...] 70.3 kg (155 lb) 06/20/2022 2:56 PM FACILITY MAINTENANCE MANAGER Height 162.6 cm (5' 4) 06/20/2022 2:56 PM FACILITY MAINTENANCE MANAGER Body Mass Index 26.61 06/20/2022 2:56 PM FACILITY MAINTENANCE MANAGER Plan of Treatment Not on file Insurance Jeanna Mikhail [place] [id number] [facility] Care Teams Registered Nurse Surgical Services Relationship Specialty Start Date End Date Ileana Barajas [address] [place] [address] [facility] - General 06/20/22
--- OUTSIDE RECORDS SUMMARY | 2024-08-01 14:46 | XMS_ITS | Clinical Summary ---
Author Organization [facility] Address [place], [place] [address] Care Team Providers Care Traffic Director Name Role Phone Ileana Barajas MD Primary Care Provider [phone] Allergies Active Allergy Reactions Criticality Noted Date Comments Acetaminophen Rash 03/21/2016 Dextromethorphan Rash 03/21/2016 Lsdyihakq-Xlv-Ig-Acetaminophen Rash 11/30 Lorcaserin Seizures High 05/22/2018 Penicillins Edema,Angioedema 01/17/2007 Pseudoephedrine Rash 03/21/2016 Medications emollient (VANICREAM) cream 60 g. 8 Active progesterone micronized (PROMETRIUM) 100 mg capsule Take 100 mg by mouth. 9 Active estradiol 0.05 mg/24 hr (ESTRADERM; VIVELLE-DOT) 0.05 mg/24 hr patch APPLY 1 PATCH EXTERNALLY TO THE SKIN 2 TIMES A WEEK 9 Active medication order composer TESTOSTERONE 1% in VANICREAM 0 9 Active valACYclovir (VALTREX) 1 gram tabletIndicatio ns:Recurrent cold sores 2 tablets at onset of cold sore symptoms and repeat in dose 12 hours. 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 Encounters Date Type Department Care Team Description 07/18/2024 8:30 AM OPERATING SYSTEMS SPECIALIST Procedure Only [facility] [address] [place] [address] Raad [facility] L Ac Acupuncture 07/18/2024 Travel 07/11/2024 8:30 AM OPERATING SYSTEMS SPECIALIST Procedure Only [facility] [address] [facility] [address] Raad [facility] L Ac Acupuncture 07/11/2024 Travel 07/04/2024 8:30 AM OPERATING SYSTEMS SPECIALIST Procedure Only [facility] [address] [place] [facility] [address] Raad Parish L Ac Acupuncture 07/04/2024 Travel 06/20/2024 8:30 AM OPERATING SYSTEMS SPECIALIST Procedure Only [facility] [address] [place] [facility] [address] Raad Parish L Ac Acupuncture 06/20/2024 Travel 06/13/2024 10:00 AM OPERATING SYSTEMS SPECIALIST Procedure Only [facility] [address] [place] [facility] [address] Raad Parish L Ac Acupuncture 06/13/2024 Travel 06/11/2024 Travel 06/06/2024 10:00 AM OPERATING SYSTEMS SPECIALIST Procedure Only [facility] [address] [place] [facility] [address] Raad Parish L Ac Acupuncture 06/05/2024 Travel 05/20/2024 1:00 PM CDT Procedure Only [facility] [address] [place] [facility] [address] Raad Parish L Ac Acupuncture (Initial treatment, [...] Paying Living Expenses Not on file 07/31/2021 Comments No Sex and Gender Information Value Date Recorded Sex Assigned at Not on file Legal Sex Female 5:19 AM OPERATING SYSTEMS SPECIALIST Gender Identity Not on file Sexual Orientation Not on file Obstetrics History Last Filed Vital Signs Vital Sign Reading Time Taken Comments Blood Pressure 113/76 10/09/2019 8:33 AM CDT tow er Pulse 67 10/09/2019 8:33 AM CDT Temperature 36.8 C (98.3 F) 04/16/2019 7:50 AM CDT Respiratory Rate 16 05/22/2018 7:57 AM CDT Oxygen Saturation 96% 10/09/2019 8:33 AM CDT Inhaled Oxygen Concentration - - Weight 76.8 kg (169 lb 6.4 oz) 09/02/2019 9:14 A M OPERATING SYSTEMS SPECIALIST Height 167 cm (5' 5.75) 09/02/2019 9:14 AM OPERATING SYSTEMS SPECIALIST Body Mass Index 27.55 09/02/2019 9:14 AM OPERATING SYSTEMS SPECIALIST Plan of Treatment Health Maintenance Due Date Last Done Comments Tdap 1974 HIV for age 15-65 1978 Hepatitis C screening for ag e 18-79 1981 Tetanus booster 1983 Colonoscopy through age 75 2008 Mammogram for age 45-75 2008 Pneumococcal series for age 50+ (1 of 1 - PCV) 2013 Zoster (shingles) series for age 50+ (1 of 2) 2013 Lipids for age 45-75 05/22/2014 05/22/2009, 05/22/2009, 05/22/2009 BMI (ht and wt on same day) for age 18+ 09/02/2020 09/02/2019, 05/22/2018, 01/14/2016 Depression screening for age 12+ 09/11/2020 09/11/2019, 09/03/2019, 09/02/2019, Additional history exists COVID-19 vaccine series ( season) 2024 05/06/2023, 02/10/2022, 06/11/2021, Additional history exists Influenza for age 50-64 03/31/2024 Pap test for age 21-65 09/18/2026 , 09/18/2023, 08/31/2018, Additional history exists RSV vaccine for adults or (1 - 1-dose 75+ series) 2038 Procedures Procedure Name Priority Date/Time Associated Diagnosis Comments ACUPUNCTURE PLAN OF CARE Routine 07/18/2024 8:29 AM OPERATING SYSTEMS SPECIALIST Chronic right shoulder pain ACUPUNCTURE PLAN OF CARE Routine 07/11/2024 8:29 AM OPERATING SYSTEMS SPECIALIST Chronic right shoulder pain ACUPUNCTURE PLAN OF CARE Routine 07/04/2024 8:24 AM OPERATING SYSTEMS SPECIALIST Chronic right shoulder pain ACUPUNCTURE PLAN OF CARE Routine 06/20/2024 8:31 AM OPERATING SYSTEMS SPECIALIST Chronic right shoulder pain ACUPUNCTURE PLAN OF CARE Routine 06/13/2024 9:56 AM OPERATING SYSTEMS SPECIALIST Chronic right shoulder pain ACUPUNCTURE PLAN OF CARE Routine 06/06/2024 1:22 PM OPERATING SYSTEMS SPECIALIST Chronic right shoulder pain ACUPUNCTURE PLAN OF CARE Routine 06/06/2024 12:58 PM OPERATING SYSTEMS SPECIALIST Chronic right shoulder pain HPV HIGH RISK Routine 09/18/2023 9:00 AM OPERATING SYSTEMS SPECIALIST CHOLESTEROL,TOTAL Routine 05/22/2009 3:3 9 PM CDT PMS (Premenstrual Syndrome) from Last 3 Months or Most Recently Relevant to Health Maintenance Results * HPV HIGH RISK (09/18/2023 9:00 AM OPERATING SYSTEMS SPECIALIST) TYPE 16 Negative Negative 09/21/2023 12:47 PM OPERATING SYSTEMS SPECIALIST [facility] TYPE 18 Negative Negative 09/21/2023 12:47 PM OPERATING SYSTEMS SPECIALIST [facility] OTHER HIGH RISK TYPES Negative Negative 09/21/2023 12:47 PM OPERATING SYSTEMS SPECIALIST [facility] Other (Cervical) 09/18/2023 9:00 AM OPERATING SYSTEMS SPECIALIST 09/19/2023 4:47 PM OPERATING SYSTEMS SPECIALIST Narrative [facility] - 09/21/2023 12:47 PM OPERATING SYSTEMS SPECIALIST HPV types 16, 18, 31, 33, 35, 39, 45, 51, 52, 56, 58, 59, 66 and 68 DNA were undetectable or below the pre-set threshold. Methodology: Osmani Kelley 4800 HPV Test us Jeniffer Ferreira MD MICROBIOLOGY Final Res ult [facility] [address] [place] [address], * Cholesterol, total (05/22/2009 3:39 PM CDT) CHOLESTEROL,TO IMTCH 180 110 - 199 mg/dL [facility] Blood specimen (specimen) BLOOD SPECIMEN / Unknown 05/22/2009 3:39 PM CDT 05/22/2009 3:26 PM CDT us Tello Prince MD CHEMISTRY Final Res ult [facility] [address] [place] [address] from Last 3 Months or Most Recently Relevant to Health Maintenance Insurance [facility] Care Teams Traffic Director Relationship Specialty Start Date End Date Ileana Barajas MD [address] [place], [place] [id number] PCP - General Internal Medicine 06/13/24
== END 2025-02-22 23:59 | disposition home or self-care (01) ==
PROVIDERS: PCP Internal Medicine; Visit Provider Internal Medicine
DX: M67.911 Unspecified disorder of synovium and tendon, right shoulder (principal); S46.811D Strain of other muscles, fascia and tendons at shoulder and upper arm level, right arm, subsequent encounter; Z51.89 Encounter for other specified aftercare
CPT/HCPCS: 97110; 97162

== ENCOUNTER 2024-11-14 13:42 | Outpatient (CLI) | payer OTHER, SELFPAY | END 2024-11-14 13:43 | disposition home or self-care (01) | PROVIDERS: PCP Internal Medicine; Visit Provider Obstetrics & Gynecology | DX: F52.0 Hypoactive sexual desire disorder (principal); Z79.899 Other long term (current) drug therapy | CPT/HCPCS: 80076; 84403 ==

== ENCOUNTER 2024-11-26 08:44 | Outpatient (CLI) | payer OTHER, SELFPAY ==
--- NOTE | 2024-11-26 10:22 | P.ANES_ITS ---
Anesthesia Charges Start Date/Time Anesthesia Start Date: 11/26/24 Anesthesia Start Time: 09:39 Stop Date/Time Anesthesia Stop Date: 11/26/24 Anesthesia Stop Time: 10:20 Coding CPT Codes CPT Codes: TASIA LWR INTST NDSC NOS - 09452 ([id number]) P2 - PATIENT W/MILD SYST DISEASE, QK - SUPERVISOR ELECTRONICS PROCESSING 2-4 CNCRNT ANES PROC, QX - AIRFLIGHT ATTENDANTS SUPERVISOR SVC W/ MD MED DIRECTION
--- NOTE | 2024-11-26 10:22 | W.ANESCHARGE ---
Anesthesia Charges Start Date/Time Anesthesia Start Date: 11/26/24 Anesthesia Start Time: 09:39 Stop Date/Time Anesthesia Stop Date: 11/26/24 Anesthesia Stop Time: 10:20 Coding CPT Codes CPT Codes: TASIA LWR INTST NDSC NOS - 49037 ([id number]) P2 - PATIENT W/MILD SYST DISEASE, QK - SAFETY ADMIN ASSISTANT 2-4 CNCRNT ANES PROC, QX - YEAST DISTILLER SVC W/ MD MED DIRECTION
--- NOTE | 2024-11-26 10:52 | P.ANES_ITS ---
Anesthesia Charges Start Date/Time Anesthesia Start Date: 11/26/24 Anesthesia Start Time: 09:39 Stop Date/Time Anesthesia Stop Date: 11/26/24 Anesthesia Stop Time: 10:20 Coding CPT Codes CPT Codes: TASIA LWR INTST NDSC NOS - 64757 ([id number]) QK - GUARD DRIVER 2-4 CNCRNT TASIA PROC, QX - FOAM TANK LAMINATOR SVC W/ MD MED DIRECTION, P2 - PATIENT W/MILD SYST DISEASE
--- NOTE | 2024-11-26 10:52 | W.ANESCHARGE ---
Anesthesia Charges Start Date/Time Anesthesia Start Date: 11/26/24 Anesthesia Start Time: 09:39 Stop Date/Time Anesthesia Stop Date: 11/26/24 Anesthesia Stop Time: 10:20 Coding CPT Codes CPT Codes: TASIA LWR INTST NDSC NOS - 59191 ([id number]) QK - MANDARIN CHINESE TEACHER 2-4 CNCRNT TASIA PROC, QX - COMMERCIAL ANNOUNCER SVC W/ MD MED DIRECTION, P2 - PATIENT W/MILD SYST DISEASE
== END 2024-11-26 08:45 | disposition home or self-care (01) ==
LOC: OP CLINIC 08:44
PROVIDERS: PCP Internal Medicine; Visit Provider Surgery
DX: Z12.11 Encounter for screening for malignant neoplasm of colon (principal); D12.2 Benign neoplasm of ascending colon
CPT/HCPCS: 00811; 45385; 88305; J2704

== ENCOUNTER 2024-12-05 10:01 | Outpatient (CLI) | payer OTHER, SELFPAY ==
--- NOTE | 2024-12-05 10:15 | CRLHL7_ITS ---
For Patients: As a result of the Century Cures Act, medical imaging exams and procedure reports are released immediately into your electronic medical record. You may view this report before your referring provider. If you have questions, please contact your health care provider. INDICATION: BILATERAL SCREENING MAMMOGRAM, ASYMPTOMATIC 59 Y/O FEMALE COMPARISON: 11/17/23, 11/07/22, 09/21/21 TECHNIQUE: CC and MLO views were obtained. These mammographic images have been obtained using full-field digital technique. These mammographic images were interpreted with the benefit of computer aided detection and tomosynthesis. BREAST COMPOSITION: The breasts are heterogeneously dense, which may obscure small masses. FINDINGS: No suspicious findings. ASSESSMENT: BI-RADS 1 Negative RECOMMENDATION: Annual screening mammogram. A lay language report of this examination will be provided to the patient. Dictated by: Rachid Sosa MD @ 12/06/2024 09:03:18 (Electronically Signed)
== END 2024-12-05 10:02 | disposition home or self-care (01) ==
LOC: MAMMO 10:02
PROVIDERS: PCP Internal Medicine; Visit Provider Internal Medicine
DX: Z12.31 Encounter for screening mammogram for malignant neoplasm of breast (principal); R92.333 Mammographic heterogeneous density, bilateral breasts
CPT/HCPCS: 77063; 77067

== ENCOUNTER 2025-01-14 11:13 | Outpatient (CLI) | payer OTHER, SELFPAY | END 2025-01-14 11:14 | disposition home or self-care (01) | LOC: NFLDREF 11:15 | PROVIDERS: PCP Internal Medicine; Visit Provider Obstetrics & Gynecology | DX: N95.1 Menopausal and female climacteric states (principal); Z79.899 Other long term (current) drug therapy | CPT/HCPCS: 84403 ==

== ENCOUNTER 2025-03-03 14:42 | Outpatient (CLI) | payer OTHER, SELFPAY | END 2025-03-03 14:43 | disposition home or self-care (01) | PROVIDERS: PCP Internal Medicine; Visit Provider Internal Medicine | DX: R00.2 Palpitations (principal); R55 Syncope and collapse; Z13.21 Encounter for screening for nutritional disorder | CPT/HCPCS: 80048; 82607; 83735 ==

== ENCOUNTER 2025-07-07 17:44 | Outpatient (CLI) | payer OTHER, SELFPAY ==
[2025-07-07 21:30] LABS: Bacterial Vaginosis* Negative (Negative); Candida glab/krus NOT DETECTED (No Detected)
== END 2025-07-07 17:45 | disposition home or self-care (01) ==
LOC: NFLDREF 17:44
PROVIDERS: PCP Internal Medicine; Visit Provider Obstetrics & Gynecology
DX: N89.8 Other specified noninflammatory disorders of vagina (principal)
CPT/HCPCS: 81513; 87481; 87661